=== PATIENT | male | born 1950 | race American Indian/Alaskan Native ===

== ENCOUNTER 2016-11-16 19:05 | Emergency (ER) | payer MEDICARE ==
[2016-11-16 20:48] LABS: Basophils % (Auto) 1.1 % (0.0-1.8); Eosinophils % (Auto) 5.2 % (0.0-4.3); Hematocrit 40.7 % (35.5-45.6); Hemoglobin 13.7 gm/dl (11.8-15.2); Mean Corpuscular HGB Conc 34 % (32-34); Mean Corpuscular Hemoglobin 30 pg (28-32); Mean Corpuscular Volume 90 fl (84-94); Platelet Count 298 K/mm3 (140-440); Red Blood Count 4.51 M/mm3 (3.65-5.03); Red Cell Distribution Width 15.4 % (13.2-15.2); White Blood Count 7.5 K/mm3 (4.5-11.0)
[2016-11-16 21:04] LABS: Anion Gap 19 mmol/L; BUN/Creatinine Ratio 14.44; Blood Urea Nitrogen 13 mg/dL (9-20); Calcium 9.7 mg/dL (8.4-10.2); Carbon Dioxide 28 mmol/L (22-30); Chloride 93.8 mmol/L (98-107); Glucose 159 mg/dL (75-100); Potassium 3.7 mmol/L (3.6-5.0); Sodium 137 mmol/L (137-145)
--- NOTE | 2016-11-16 23:58 | Emergency Department Report ---
ED General Adult HPI - General Chief complaint: Chest Pain Stated complaint: HEART BURN Time Seen by Provider: 11/16/16 23:50 Source: patient Mode of arrival: Ambulatory Limitations: No Limitations - History of Present Illness Initial comments: 66-year-old male with a past medical history of hypertension comes in for complaint of heartburn. Patient reports that the cast feels like is moving all over his back and shoulders. He reports that this started today. He does complain of cough with mucus that is a long like a strain. He admits to vomiting about 7 PM today admits to nausea denies any fever chills or diarrhea. He reported the heartburn feels like it's burning. He does elicit that his last follow-up with his PCP was 2 weeks ago. He is scheduled for colonoscopy on 12/02/2016. - Related Data Previous Rx's Medication Instructions Recorded Last Taken Type Ibuprofen [Motrin 800 MG tab] 800 mg PO Q8H #30 tablet 02/23/15 Unknown Rx traMADol [Ultram 50 MG tab] 50 mg PO Q6HR PRN #25 tablet 02/23/15 Unknown Rx Lisinopril/Hydrochlorothiazide 2 each PO QDAY #60 tablet 07/22/15 Unknown Rx [Zestoretic 20-12.5 mg] Ranitidine HCl [Zantac 150 MG TAB] 150 mg PO BID #60 tablet 11/17/16 Unknown Rx Allergies Allergy/AdvReac Type Severity Reaction Status Date / Time No Known Allergies Allergy Verified 07/22/15 05:03 ED Review of Systems ROS: Stated complaint: HEART BURN Other details as noted in HPI Constitutional: denies: chills, fever Respiratory: cough. denies: shortness of breath, SOB with exertion, SOB at rest Cardiovascular: denies: chest pain Gastrointestinal: nausea, vomiting, constipation. denies: abdominal pain, diarrhea ED Past Medical Hx - Past Medical History Hx Hypertension: Yes - Surgical History Past Surgical History?: Yes Additional Surgical History: tonsilectomy X10 years - Social History Smoking Status: Current Every Day Smoker Substance Use Type: Alcohol - Medications Home Medications: Home Medications Medication Instructions Recorded Confirmed Last Taken Type Ibuprofen [Motrin 800 MG tab] 800 mg PO Q8H #30 tablet 15 07/22/15 Unknown Rx traMADol [Ultram 50 MG tab] 50 mg PO Q6HR PRN #25 tablet 02/23/15 07/22/15 Unknown Rx Lisinopril/Hydrochlorothiazide 2 each PO QDAY #60 tablet 07/22/15 Unknown Rx [Zestoretic 20-12.5 mg] Ranitidine HCl [Zantac 150 MG TAB] 150 mg PO BID #60 tablet 11/17/16 Unknown Rx ED Physical Exam - General Limitations: No Limitations General appearance: alert, in no apparent distress - Head Head exam: Present: atraumatic, normocephalic - Eye Eye exam: Present: normal appearance, PERRL, EOMI - ENT ENT exam: Present: normal exam, mucous membranes moist - Neck Neck exam: Present: normal inspection - Respiratory Respiratory exam: Present: normal lung sounds bilaterally. Absent: respiratory distress, wheezes, rales, rhonchi, chest wall tenderness - Cardiovascular Cardiovascular Exam: Present: tachycardia, normal heart sounds - GI/Abdominal GI/Abdominal exam: Present: soft. Absent: distended, tenderness ED Course Vital Signs 11/16/16 19:58 Temperature 98.8 F Pulse Rate 111 H Blood Pressure 155/86 O2 Sat by Pulse 98 Oximetry ED Medical Decision Making - Lab Data Result diagrams: 11/16/16 20:14 11/16/16 20:14 - Radiology Data Radiology results: image reviewed FINAL REPORT PROCEDURE: XR CHEST ROUTINE 2V PA AND LATERAL TECHNIQUE: A total of 3 films obtained which are 1 PA view and 2 lateral views of the chest HISTORY: chest pain COMPARISON: No prior studies are available for comparison. FINDINGS: Some small focal densities projecting in the central mediastinum on the lateral views are too small to characterize and therefore remain nonspecific but are relatively dense for their size and therefore could be small calcified lymph nodes or calcified granulomas. These are difficult to identify on the frontal view. The mediastinal contour and heart size are normal. The lungs are clear with no edema or infiltrate or effusion. There is no plain film evidence of pneumothorax. IMPRESSION: Overall negative PA and lateral chest with no plain film evidence of acute finding. - Medical Decision Making Patient seen by this provider in fast track. Chest pain protocol was ordered in triage. Troponin is within normal limits awaiting chest x-ray reading, EKG showed sinus tachycardic, septal infarct, age undetermined. Chest x-ray came back negative for any infiltrates. Dr. Shore evaluated by patient as well. He both agreed that we could discharge patient on a H2 lorena and have him follow- up closely with his primary care provider. Patient verbalized understanding. Critical care attestation.: If time is entered above; I have spent that time in minutes in the direct care of this critically ill patient, excluding procedure time. ED Disposition Clinical Impression: Heart burn Disposition: DISCHARGED TO HOME OR SELFCARE Is pt being admited?: No Does the pt Need Aspirin: No Condition: Stable Instructions: Gastroesophageal Reflux Disease (ED) Additional Instructions: Is very importantly to follow with her primary care provider. To discuss preventative care for your heart. As well as evaluation for your heartburn. Prescriptions: Ranitidine HCl [Zantac 150 MG TAB] 150 mg PO BID #60 tablet Referrals: ORLANDO HICKEY MD [Primary Care Provider] - 3-5 Days Forms: Work/School Release Form(ED)
--- NOTE | 2016-11-17 01:00 | XRay Report ---
FINAL REPORT PROCEDURE: XR CHEST ROUTINE 2V PA AND LATERAL TECHNIQUE: A total of 3 films obtained which are 1 PA view and 2 lateral views of the chest HISTORY: chest pain COMPARISON: No prior studies are available for comparison. FINDINGS: Some small focal densities projecting in the central mediastinum on the lateral views are too small to characterize and therefore remain nonspecific but are relatively dense for their size and therefore could be small calcified lymph nodes or calcified granulomas. These are difficult to identify on the frontal view. The mediastinal contour and heart size are normal. The lungs are clear with no edema or infiltrate or effusion. There is no plain film evidence of pneumothorax. IMPRESSION: Overall negative PA and lateral chest with no plain film evidence of acute finding.
[2016-11-17 01:55] VITALS: BP 145/82
== END 2016-11-17 01:54 | disposition home or self-care (01) ==
LOC: ED 19:05
DX: R12 Heartburn (principal); I10 Essential (primary) hypertension; F17.200 Nicotine dependence, unspecified, uncomplicated
CPT/HCPCS: 36415; 71020; 80048; 84484; 85025; 93005; 93010

== ENCOUNTER 2017-04-13 00:32 | Emergency (ER) | payer MEDICARE ==
[2017-04-13 00:46] VITALS: BP 157/85
[2017-04-13] MEDS ORDERED: TYLENOL PO ONE (00:47)
[2017-04-13 01:21] LABS: Basophils % (Auto) 1.1 % (0.0-1.8); Eosinophils % (Auto) 4.9 % (0.0-4.3); Hematocrit 41.1 % (35.5-45.6); Hemoglobin 13.5 gm/dl (11.8-15.2); Mean Corpuscular HGB Conc 33 % (32-34); Mean Corpuscular Hemoglobin 29 pg (28-32); Mean Corpuscular Volume 89 fl (84-94); Platelet Count 301 K/mm3 (140-440); Red Blood Count 4.61 M/mm3 (3.65-5.03); Red Cell Distribution Width 16.1 % (13.2-15.2); White Blood Count 8.3 K/mm3 (4.5-11.0)
[2017-04-13 01:32] LABS: Anion Gap 16 mmol/L; BUN/Creatinine Ratio 22.85; Blood Urea Nitrogen 16 mg/dL (9-20); Calcium 9.6 mg/dL (8.4-10.2); Carbon Dioxide 27 mmol/L (22-30); Glucose 118 mg/dL (75-100); Potassium 4.2 mmol/L (3.6-5.0); Sodium 139 mmol/L (137-145)
== END 2017-04-13 04:30 | disposition left against medical advice (07) ==
LOC: ED 00:32
DX: I10 Essential (primary) hypertension (principal); R51 Headache; F17.200 Nicotine dependence, unspecified, uncomplicated; Z53.21 Procedure and treatment not carried out due to patient leaving prior to being seen by health care provider
CPT/HCPCS: 36415; 80048; 85025

== ENCOUNTER 2017-05-13 02:29 | Emergency (ER) | payer MEDICARE ==
[2017-05-13 02:50] VITALS: BP 149/82
--- NOTE | 2017-05-13 03:16 | Emergency Department Report ---
- General Chief Complaint: Upper Respiratory Infection Stated Complaint: scratchy throat, runny nose Source: patient Mode of arrival: Ambulatory Limitations: No Limitations - History of Present Illness Initial Comments: Patient states that for the past day or 2 just scratchy throat and runny nose HE watery eyes. Patient complains of nonproductive cough, denies shortness of breath, denies chest pain. Patient states he was just his primary care doctor' s Sunday and got a clean bill of health and doesn't need to be seen again for 6 months, patient said he started getting sick with the symptoms approximately a day or 2 after that. Patient also denies nausea vomiting diarrhea, abdominal pain, dizziness, weakness, fatigue, or syncope. Patient states he just wants some antibiotics or allergy medicines so he can go fishing today. MD Complaint: cough, sore throat, nasal congestion -: Gradual, days(s) (2) Consistency: constant Improves With: nothing Worsens With: nothing Associated Symptoms: rhinorrhea, nasal congestion, sore throat, cough. denies: fever, chills, myalgias, diaphoresis, headache, stiff neck, chest pain, shortness of breath, abdominal pain, nausea, vomiting, diarrhea, dysuria, rash, confusion, right sweats, weight loss, epistaxis, hoarseness, ear pain - Related Data Home Medications Medication Instructions Recorded Confirmed Last Taken Aspirin [Adult Low Dose Aspirin EC] 81 mg PO 05/13/17 1 Day Ago Hydrochlorothiazide [HCTZ] 25 mg PO QDAY 05/13/17 05/13/17 1 Day Ago Lisinopril [Zestril] 40 mg PO 05/13/17 1 Day Ago amLODIPine [Norvasc] 10 mg PO DAILY 05/13/17 05/13/17 1 Day Ago Previous Rx's Medication Instructions Recorded Last Taken Type Azithromycin [Zithromax Z-JANEEN] 250 mg PO QDAY #6 tablet 05/13/17 Unknown Rx Cetirizine HCl [ZyrTEC] 10 mg PO DAILY #10 tab.rapdis 05/13/17 Unknown Rx Prednisone [predniSONE 5 mg (6-Day 5 mg PO .TAPER #1 tab.ds.pk 05/13/17 Unknown Rx Pack, 21 Tabs)] Allergies Allergy/AdvReac Type Severity Reaction Status Date / Time No Known Allergies Allergy Verified 10/08/15 05:03 ED Review of Systems ROS: Stated complaint: HEADACHE Other details as noted in HPI Constitutional: denies: chills, diaphoresis, fever, malaise Eyes: other (itchy watery eyes). denies: eye pain ENT: throat pain (scratchy), congestion (nasal congestion). denies: ear pain Respiratory: cough. denies: see HPI, orthopnea, shortness of breath, SOB with exertion, SOB at rest, stridor Cardiovascular: denies: chest pain Gastrointestinal: denies: abdominal pain, nausea, vomiting, diarrhea, constipation, hematemesis, melena, hematochezia Musculoskeletal: denies: back pain, arthralgia, myalgia Skin: denies: rash, lesions Neurological: denies: headache, weakness, numbness, paresthesias, confusion, abnormal gait, vertigo ED Past Medical Hx - Past Medical History Previous Medical History?: Yes Hx Hypertension: Yes - Surgical History Past Surgical History?: Yes Additional Surgical History: tonsilectomy X10 years - Social History Smoking Status: Current Every Day Smoker Substance Use Type: Alcohol - Medications Home Medications: Home Medications Medication Instructions Recorded Confirmed Last Taken Type Aspirin [Adult Low Dose Aspirin EC] 81 mg PO 05/13/17 1 Day Ago History Azithromycin [Zithromax Z-JANEEN] 250 mg PO QDAY #6 tablet 05/13/17 Unknown Rx Cetirizine HCl [ZyrTEC] 10 mg PO DAILY #10 tab.rapdis 05/13/17 Unknown Rx Hydrochlorothiazide [HCTZ] 25 mg PO QDAY 05/13/17 05/13/17 1 Day Ago History Lisinopril [Zestril] 40 mg PO 05/13/17 1 Day Ago History Prednisone [predniSONE 5 mg (6-Day 5 mg PO .TAPER #1 tab.ds.pk 05/13/17 Unknown Rx Pack, 21 Tabs)] amLODIPine [Norvasc] 10 mg PO DAILY 05/13/17 05/13/17 1 Day Ago History ED Physical Exam - General Limitations: No Limitations General appearance: alert, in no apparent distress - Head Head exam: Present: atraumatic, normocephalic - Eye Eye exam: Present: normal appearance, PERRL, EOMI. Absent: periorbital swelling , periorbital tenderness - ENT ENT exam: Present: normal exam, normal orophraynx, mucous membranes moist, TM's normal bilaterally (bilateral cerumen obscuration). Absent: normal external ear exam - Neck Neck exam: Present: normal inspection - Respiratory Respiratory exam: Present: normal lung sounds bilaterally. Absent: respiratory distress, wheezes, rales - Cardiovascular Cardiovascular Exam: Present: regular rate - GI/Abdominal GI/Abdominal exam: Present: soft. Absent: distended, tenderness, guarding, rebound, rigid - Back Exam Back exam: Present: normal inspection, full ROM. Absent: CVA tenderness (R), CVA tenderness (L) - Neurological Exam Neurological exam: Present: alert, oriented X3, CN II-XII intact, normal gait - Skin Skin exam: Present: warm, dry, intact, normal color. Absent: rash ED Course Vital Signs 05/13/17 02:42 Temperature 98.1 F Pulse Rate 89 Respiratory 18 Rate Blood Pressure 149/82 O2 Sat by Pulse 97 Oximetry ED Medical Decision Making - Medical Decision Making Agents afebrile with bilateral breath sounds clear to auscultation normal vital signs. Patient description of symptoms sounds like URI versus allergies. Critical care attestation.: If time is entered above; I have spent that time in minutes in the direct care of this critically ill patient, excluding procedure time. ED Disposition Clinical Impression: URI (upper respiratory infection) Disposition: DC-01 TO HOME OR SELFCARE Is pt being admited?: No Condition: Stable Instructions: Upper Respiratory Infection (ED) Prescriptions: Azithromycin [Zithromax Z-JANEEN] 250 mg PO QDAY #6 tablet Cetirizine HCl [ZyrTEC] 10 mg PO DAILY #10 tab.rapdis Prednisone [predniSONE 5 mg (6-Day Pack, 21 Tabs)] 5 mg PO .TAPER #1 tab.ds.pk Referrals: PRIMARY CARE,MD [Primary Care Provider] - 3-5 Days
[2017-05-13] MEDS ORDERED: DELTASONE PO ONE ×2 (03:22→03:27)
== END 2017-05-13 03:28 | disposition home or self-care (01) ==
LOC: ED 02:29
DX: J06.9 Acute upper respiratory infection, unspecified (principal); I10 Essential (primary) hypertension; F17.200 Nicotine dependence, unspecified, uncomplicated
CPT/HCPCS: 99282; J7512

== ENCOUNTER 2017-05-22 05:26 | Emergency (ER) | payer MEDICARE ==
[2017-05-22 06:27] LABS: Hematocrit 38.7 % (35.5-45.6); Hemoglobin 13.3 gm/dl (11.8-15.2); Mean Corpuscular HGB Conc 34 % (32-34); Mean Corpuscular Hemoglobin 30 pg (28-32); Mean Corpuscular Volume 88 fl (84-94); Platelet Count 275 K/mm3 (140-440); Red Blood Count 4.38 M/mm3 (3.65-5.03); Red Cell Distribution Width 15.9 % (13.2-15.2); White Blood Count 6.8 K/mm3 (4.5-11.0)
[2017-05-22 06:43] LABS: BUN/Creatinine Ratio 23.33; Blood Urea Nitrogen 14 mg/dL (9-20); Calcium 9.6 mg/dL (8.4-10.2); Carbon Dioxide 24 mmol/L (22-30); Glucose 105 mg/dL (75-100)
[2017-05-22 06:44] LABS: Anion Gap 18 mmol/L; Chloride 98.5 mmol/L (98-107); Potassium 3.8 mmol/L (3.6-5.0); Sodium 137 mmol/L (137-145)
[2017-05-22] MEDS ORDERED: DELTASONE PO ONE (08:15)
--- NOTE | 2017-05-22 08:23 | Emergency Department Report ---
HPI - General Chief Complaint: Back Pain/Injury Time Seen by Provider: 05/22/17 08:12 - HPI HPI: he is a 67-year-old male who presents to ED complaining of tingling sensation on his bilateral fingers 2 days and bilateral lower back pain 2 weeks. Patient states he was seen here about 2 weeks ago for an allergic reaction and was given some medications. Patient states after taking his medications when he started having the symptoms. Patient denies being diabetic. Patient denies fevers/chills/nausea/vomiting/chest pain/dizziness or headache. Etc. patient denies any injury, dysuria, frequency. ED Past Medical Hx - Past Medical History Previous Medical History?: Yes Hx Hypertension: Yes - Surgical History Past Surgical History?: Yes Additional Surgical History: tonsilectomy X10 years - Social History Smoking Status: Current Some Day Smoker Substance Use Type: None - Medications Home Medications: Home Medications Medication Instructions Recorded Confirmed Last Taken Type Aspirin [Adult Low Dose Aspirin EC] 81 mg PO 05/13/17 1 Day Ago History Azithromycin [Zithromax Z-JANEEN] 250 mg PO QDAY #6 tablet 05/13/17 Unknown Rx Cetirizine HCl [ZyrTEC] 10 mg PO DAILY #10 tab.rapdis 05/13/17 Unknown Rx Hydrochlorothiazide [HCTZ] 25 mg PO QDAY 05/13/17 05/13/17 1 Day Ago History Lisinopril [Zestril] 40 mg PO 05/13/17 1 Day Ago History Prednisone [predniSONE 5 mg (6-Day 5 mg PO .TAPER #1 tab.ds.pk 05/13/17 Unknown Rx Pack, 21 Tabs)] amLODIPine [Norvasc] 10 mg PO DAILY 05/13/17 05/13/17 1 Day Ago History Cyclobenzaprine [Flexeril] 10 mg PO QHS PRN #30 tablet 05/22/17 Unknown Rx Diclofenac Potassium 50 mg PO DAILY #30 tablet 05/22/17 Unknown Rx ED Review of Systems ROS: Stated complaint: ALLERGIC REACTION Other details as noted in HPI Constitutional: denies: chills, fever Eyes: denies: eye pain, eye discharge, vision change ENT: denies: ear pain, throat pain Respiratory: denies: cough, shortness of breath, wheezing Cardiovascular: denies: chest pain, palpitations Endocrine: no symptoms reported Gastrointestinal: denies: abdominal pain, nausea, diarrhea Genitourinary: denies: urgency, dysuria Musculoskeletal: back pain, myalgia. denies: joint swelling, arthralgia Skin: denies: rash, lesions Neurological: denies: headache, weakness, paresthesias Psychiatric: denies: anxiety, depression Hematological/Lymphatic: denies: easy bleeding, easy bruising Physical Exam - Physical Exam Vital Signs: Vital Signs 05/22/17 05:28 Temperature 98.5 F Pulse Rate 84 Respiratory 18 Rate Blood Pressure 148/78 O2 Sat by Pulse 98 Oximetry Physical Exam: GENERAL: Alert and oriented x3, no apparent distress, Normal Gait, atraumatic. HEAD: Head is normocephalic and a-traumatic. NECK: Supple. Non edematous, No lymphadenopathy or thyromegaly. No C-spine tenderness LUNGS: Symetrical with respiration, No wheezing, no rales or crackles, CTAB. HEART: S1, S2 present, regular rate and rhythm without murmur, no rubs, no gallops. Non tender to palpation ABDOMEN: No organomegaly was noted,Positive bowel sounds, soft, and non- distended. No pulsatile mass . Nontender to palpation on all Quadrants, NO CVA tenderness. EXTREMITIES/MUSCULOSKELETAL: No cyanosis, clubbing, rash, lesions or edema. Full ROM bilaterally. UE/LE Pulses 2+ bilaterally. LE 5+ strength bilaterally. NEUROLOGIC: The patient is cooperative with no focal neurologic deficits. Cranial nerves II through XII are grossly intact. Normal speech. Normal sensation in V1, V2, V3 bilaterally. Normal sensation in bilateral upper extremities, No loss of sensation, PSYCHIATRIC: Mood is congruent with affect, denies suicidal or homicidal ideations. SKIN: Warm and dry, No lesions, No ulceration or induration present. ED Course Vital Signs 05/22/17 05:28 Temperature 98.5 F Pulse Rate 84 Respiratory 18 Rate Blood Pressure 148/78 O2 Sat by Pulse 98 Oximetry ED Medical Decision Making - Lab Data Result diagrams: 05/22/17 06:10 05/22/17 06:10 - Radiology Data Radiology results: report reviewed, image reviewed - Medical Decision Making 67-year-old male presents with ED course urinalysis, CBC, CMP, CT scan of the lower lumbar spine ordered CT scan shows C reported above. CBC CMP within normal limits, urinalysis shows Discussed all findings the patient. Discussed patient to follow up with primary care physician. Discussed with patient his symptoms do worsen to return to the ED Vital signs are normal patient is in no acute distress patient is alert and oriented 3. Critical care attestation.: If time is entered above; I have spent that time in minutes in the direct care of this critically ill patient, excluding procedure time. ED Disposition Clinical Impression: Low back pain Qualifiers: Back pain laterality: bilateral Sciatica presence: without sciatica Disposition: TO HOME OR SELFCARE Is pt being admited?: No Does the pt Need Aspirin: No Condition: Stable Instructions: Lumbar Radiculopathy (ED), Arthralgia (ED) Additional Instructions: Follow instructions as discussed. Symptoms worsen return to ED. Prescriptions: Cyclobenzaprine [Flexeril] 10 mg PO QHS PRN #30 tablet PRN Reason: Muscle Spasm Diclofenac Potassium 50 mg PO DAILY #30 tablet Referrals: PRIMARY CARE, [Primary Care Provider] - 3-5 Days [facility] [Outside] - 3-5 Days [facility] [Outside] - 3-5 Days Forms: Accompanied Note, Work/School Release Form(ED) Time of Disposition: 10:11
--- NOTE | 2017-05-22 09:10 | Cat Scan Report ---
CT LUMBAR SPINE WITHOUT CONTRAST History: Low back pain. Technique: Helical CT and 1.25 mm intervals. Sagittal and coronal reformatted images. Comparison: None. Findings: There is normal height and alignment of the lumbar vertebral bodies. No evidence for fracture, bone lesion or malalignment. Moderate to severe degenerative disc disease with circumferential spurring is identified at L3-4, L4-5 and L5-S1. Vacuum phenomenon is present at all 3 levels. Moderate facet arthropathy and hypertrophy ligamentum flavum is also present at all 3 levels. Although intraspinal contents is limited on noncontrast CT. Mild central canal narrowing is suspected at all 3 levels. There is also mild to moderate bilateral neural foraminal narrowing at all 3 levels. L5-S1 neural foramina are most affected where stenosis is estimated at 50-75%. Impression: No acute process is appreciated. Advanced degenerative disc disease and facet arthropathy at the lowest 3 levels as outlined above. If radicular symptoms are present, CT lumbar myelogram or MRI lumbar spine without contrast is recommended.
[2017-05-22 09:32] LABS: Bilirubin,Urine NEG (Negative); Blood,Urine SM (Negative); Ketones,Urine NEG (Negative); Leukocyte Esterase,Urine NEG (Negative); Mucus,Urine FEW /HPF; Nitrite,Urine NEG (Negative); Protein,Urine <15 mg/dL mg/dL (Negative); Urobilinogen,Urine < 2.0 mg/dL (<2.0)
[2017-05-22 10:27] VITALS: BP 141/74
== END 2017-05-22 10:25 | disposition home or self-care (01) ==
LOC: ED 05:26
DX: M54.5 Low back pain (principal); I10 Essential (primary) hypertension; Z72.0 Tobacco use; Z79.82 Long term (current) use of aspirin
CPT/HCPCS: 36415; 72131; 80048; 81001; 85027; 99284; J7512

== ENCOUNTER 2018-05-27 03:52 | Emergency (ER) | payer MEDICARE | END 2018-05-27 04:00 | disposition left against medical advice (07) | LOC: ED 03:52 | DX: I10 Essential (primary) hypertension (principal); R42 Dizziness and giddiness; Z53.21 Procedure and treatment not carried out due to patient leaving prior to being seen by health care provider ==

== ENCOUNTER 2020-01-30 20:56 | Observation (INO) | payer MEDICARE ==
--- NOTE | 2020-01-30 21:29 | XRay Report ---
CHEST 2 VIEWS INDICATION / CLINICAL INFORMATION: Chest pain, dizziness and indigestion. COMPARISON: 11/16/16. FINDINGS: SUPPORT DEVICES: None. HEART / MEDIASTINUM: The heart size and pulmonary vasculature are normal. There is calcification in t he aortic arch without aneurysm. LUNGS / PLEURA: No significant pulmonary or pleural abnormality. No pneumothorax. ADDITIONAL FINDINGS: No significant additional findings. IMPRESSION: No acute abnormality or significant change. Signer Name: Kale Damon MD Signed: 01/30/2020 9:25 PM Workstation Name: [id number]
--- NOTE | 2020-01-30 21:43 | Emergency Department Report ---
ED Chest Pain HPI - General Chief Complaint: Chest Pain Stated Complaint: CHEST PAIN Time Seen by Provider: 01/30/20 21:07 Source: patient, EMS Mode of arrival: Stretcher Limitations: Physical Limitation - History of Present Illness Initial Comments: Patient is a 69-year-old male that presents emergency room with complaints of dizziness air indigestion. Patient states he had lower chest pain and epigastric pain that radiated to his back. Patient states the pain has resolved since receiving nitro and aspirin. Patient denies short of breath. Patient states prior to calling the ambulance his pain was a 10 out of 10. Patient states his pain was worse with exertion and movement. Patient states his pain is better with rest and the medications given by EMS. Patient had a recent carotid endarterectomy secondary to a high level blockage. Patient denies recent travel. Patient denies recent international travel. Patient denies exposure to the novel coronavirus. Patient denies sick contacts. Patient denies fever and chills. Patient denies cough. Patient denies diarrhea. Patient denies coming in contact with anybody with symptoms of the novel coronavirus. EMS report received. EMS states they gave the patient 3 nitros sublingual. Patient was also given 324 aspirin by mouth. EMS states that the patient's initial blood pressure was 240/100 and improved with the nitro. MD Complaint: chest pain -: Sudden Onset: during rest Pain Radiation: none Severity scale (0 -10): 0 Quality: sharp Consistency: now resolved Improves With: medication-other, rest Worsens With: exertion, movement re: denies: nausea, vomting, diaphoresis, dyspnea, sense of impending doom Other Symptoms: denies: cough, fever, syncope, rash, acid taste in mouth, leg swelling, palpitations, burping Treatments Prior to Arrival: aspirin, nitroglycerin Aspirin use within the Past 7 Days: (1) Yes - Related Data On Oral Contraceptives: No Home Medications Medication Instructions Recorded Confirmed Last Taken amLODIPine [Norvasc] 5 mg PO DAILY 05/13/17 01/30/20 1 Day Ago ~05/12/17 Aspirin 325 mg PO ONCE 01/30/20 01/30/20 Unknown Atorvastatin Calcium [Lipitor] 80 mg PO HS 01/30/20 01/30/20 Unknown Clopidogrel [Plavix] 75 mg PO QDAY 01/30/20 01/30/20 Unknown Iron,Carb/Vit C/Vit B12/Folic 65 mg PO TID 01/30/20 01/30/20 Unknown [Iron 100 Plus Tablet] Methocarbamol [Robaxin] 500 mg PO Q8HR PRN 01/30/20 01/30/20 Unknown Metoprolol [Lopressor TAB] 50 mg PO BID 01/30/20 01/30/20 Unknown Omeprazole 40 mg PO DAILY 01/30/20 01/30/20 Unknown amLODIPine [Norvasc] 5 mg PO DAILY 01/30/20 01/30/20 Unknown hydroCHLOROthiazide [Hctz] 12.5 mg PO QDAY 01/30/20 01/30/20 Unknown Allergies Allergy/AdvReac Type Severity Reaction Status Date / Time No Known Allergies Allergy Verified 07/22/15 05:03 Heart Score - HEART Score History: Moderately suspicious EKG: Non-specific Age: > 65 Risk factors: > 3 risk factors or hx of atherosclerotic disease Troponin: < normal limit HEART Score: 6 ED Review of Systems ROS: Stated complaint: CHEST PAIN Other details as noted in HPI Constitutional: denies: chills, fever Eyes: denies: eye pain, eye discharge, vision change ENT: denies: ear pain, throat pain Respiratory: denies: cough, shortness of breath, wheezing Cardiovascular: chest pain. denies: palpitations Endocrine: no symptoms reported Gastrointestinal: denies: abdominal pain, nausea, diarrhea Genitourinary: denies: urgency, dysuria Musculoskeletal: denies: back pain, joint swelling, arthralgia Skin: denies: rash, lesions Neurological: denies: headache, weakness, paresthesias Psychiatric: denies: anxiety, depression Hematological/Lymphatic: denies: easy bleeding, easy bruising ED Past Medical Hx - Past Medical History Previous Medical History?: Yes Hx Hypertension: Yes Additional medical history: acid reflux, L jugular blockage - Surgical History Past Surgical History?: Yes Additional Surgical History: tonsilectomy X10 years, stent at jugular vein(unknown how many stents) - Family History Family history: no significant - Social History Smoking Status: Current Every Day Smoker Substance Use Type: Alcohol - Medications Home Medications: Home Medications Medication Instructions Recorded Confirmed Last Taken Type amLODIPine [Norvasc] 5 mg PO DAILY 05/13/17 01/30/20 1 Day Ago History ~05/12/17 Aspirin 325 mg PO ONCE 01/30/20 01/30/20 Unknown History Atorvastatin Calcium [Lipitor] 80 mg PO HS 01/30/20 01/30/20 Unknown History Clopidogrel [Plavix] 75 mg PO QDAY 01/30/20 01/30/20 Unknown History Iron,Carb/Vit C/Vit B12/Folic 65 mg PO TID 01/30/20 01/30/20 Unknown History [Iron 100 Plus Tablet] Methocarbamol [Robaxin] 500 mg PO Q8HR PRN 01/30/20 01/30/20 Unknown History Metoprolol [Lopressor TAB] 50 mg PO BID 01/30/20 01/30/20 Unknown History Omeprazole 40 mg PO DAILY 01/30/20 01/30/20 Unknown History amLODIPine [Norvasc] 5 mg PO DAILY 01/30/20 01/30/20 Unknown History hydroCHLOROthiazide [Hctz] 12.5 mg PO QDAY 01/30/20 01/30/20 Unknown History ED Physical Exam - General Limitations: Physical Limitation General appearance: alert, in no apparent distress - Head Head exam: Present: atraumatic, normocephalic - Eye Eye exam: Present: normal appearance - ENT ENT exam: Present: mucous membranes moist - Neck Neck exam: Present: normal inspection - Respiratory Respiratory exam: Present: normal lung sounds bilaterally. Absent: respiratory distress, wheezes, rales, chest wall tenderness - Cardiovascular Cardiovascular Exam: Present: regular rate, normal rhythm. Absent: systolic murmur, diastolic murmur, rubs, gallop - GI/Abdominal GI/Abdominal exam: Present: soft, normal bowel sounds. Absent: distended, tenderness, guarding - Rectal Rectal exam: Present: deferred - Extremities Exam Extremities exam: Present: normal inspection - Back Exam Back exam: Present: normal inspection - Neurological Exam Neurological exam: Present: alert, oriented X3 - Psychiatric Psychiatric exam: Present: normal affect, normal mood - Skin Skin exam: Present: warm, dry, intact, normal color. Absent: rash ED Course Vital Signs 01/30/20 01/30/20 01/31/20 21:06 22:30 00:31 Temperature 98.6 F Pulse Rate 100 H 79 87 Respiratory 12 16 15 Rate Blood Pressure 109/58 109/58 Blood Pressure 122/75 [Right] O2 Sat by Pulse 97 99 Oximetry 01/31/20 01/31/20 01:01 01:10 Temperature Pulse Rate 94 H 93 H Respiratory 17 11 L Rate Blood Pressure 109/58 109/58 Blood Pressure [Right] O2 Sat by Pulse 98 99 Oximetry - Reevaluation(s) Reevaluation #1: I discussed all results with patient. I discussed plan of care with patient. Patient agrees with plan of care and admission. Patient to be admitted to the hospitalist service. The 01/30/20 23:56 - Consultations Consultation #1: Hospitalist consulted for admission. Hospitalist to admit patient. Bridge orders placed. 01/30/20 23:56 GAYATHRI score - Gayathri Score Age > 65: (1) Yes Aspirin use within the Past 7 Days: (1) Yes 3 or more CAD Risk Factors: (1) Yes 2 or more Angina events in past 24 hrs: (0) No Known CAD with more than 50% Stenosis: (0) No Elevated Cardiac Markers: (0) No ST Deviation Greater than 0.5mm: (0) No GAYATHRI Score: 3 ED Medical Decision Making - Lab Data Result diagrams: 01/30/20 21:21 01/30/20 21:21 - EKG Data -: EKG Interpreted by [facility] EKG shows normal: sinus rhythm, intervals, ST-T waves Rate: tachycardia - EKG Data Interpretation: LVH, other (Left axis deviation, wide QRS consistent with a left bundle branch block) - Radiology Data Radiology results: report reviewed, image reviewed CHEST 2 VIEWS INDICATION / CLINICAL INFORMATION: Chest pain, dizziness and indigestion. COMPARISON: 11/16/16. FINDINGS: SUPPORT DEVICES: None. HEART / MEDIASTINUM: The heart size and pulmonary vasculature are normal. There is calcification in the aortic arch without aneurysm. LUNGS / PLEURA: No significant pulmonary or pleural abnormality. No pneumothorax. ADDITIONAL FINDINGS: No significant additional findings. IMPRESSION: No acute abnormality or significant change. CTA CHEST WITH IV CONTRAST INDICATION / CLINICAL INFORMATION: MAIN: cp radiating to back 100cc Omni 350 . TECHNIQUE: Axial CT images were obtained through the chest after injection of 100 mL IV contrast. 3 plane MIP and/or 3D reconstructions were produced. All CT scans at this location are performed using CT dose reduction for [facility] by means of automated exposure control. COMPARISON: Chest radiograph from earlier today. FINDINGS: PULMONARY ARTERIES: No pulmonary emboli. THORACIC AORTA: Mild to moderate amount of calcified plaque is seen within the aortic arch but no evidence of aneurysm or dissection. HEART: No significant abnormality. CORONARY ARTERIES: Coronary artery calcification is present. PLEURA: No pleural effusion. No pneumothorax. LYMPH NODES: Multiple slightly prominent lymph nodes are present in the AP window. No hilar adenopathy noted.. LUNGS: No acute air space or interstitial disease. Both lungs are clear. ADDITIONAL FINDINGS: None. UPPER ABDOMEN: Small hiatal hernia is present. Calcified plaque is present in the proximal abdominal aorta. Gallstones are present within the gallbladder. SKELETAL STRUCTURES: Spondylitic changes present. IMPRESSION: 1. No CT evidence for pulmonary embolism. No evidence of aortic dissection. 2. Both lungs are clear. 3. Mild AP window mediastinal adenopathy of uncertain clinical significance. Chest CT scan in 6 months is suggested to evaluate stability. 4. Cholelithiasis without evidence of acute cholecystitis. 5. Small hiatal hernia. - Medical Decision Making Patient is a 69-year-old male that presents emergency room with complaints of chest pain rating to the back. Patient chest pain was actually in the lower aspect of her chest and in the epigastric region. Patient had a CT of the chest done in order to rule out a PE and dissection. Patient CTA was negative for acute lung findings. Patient's EKG was negative for a STEMI. Patient's labs were essentially unremarkable. Patient's cardiac work-up was negative x2 troponins. Patient admitted to the hospital service to rule out ACS. Patient brought in by EMS and EMS found the patient had chest pain and severely elevated blood pressure of 210/100. Patient was given 3 nitros and aspirin in route. Patient's blood pressure improved. - Differential Diagnosis ACS, chest pain, PE, dissection Critical Care Time: Yes Critical care time in (mins) excluding proc time.: 35 Critical care attestation.: If time is entered above; I have spent that time in minutes in the direct care of this critically ill patient, excluding procedure time. Critical Care Time: 35 minutes ED Disposition Clinical Impression: Hypertensive emergency Chest pain Qualifiers: Chest pain type: unspecified Qualified Code(s): R07.9 - Chest pain, unspecified Disposition: OP ADMIT IP TO THIS HOSP Is pt being admited?: Yes Does the pt Need Aspirin: No Condition: Critical Time of Disposition: 23:59
[2020-01-30 21:55] LABS: Hematocrit 32.3 % (35.5-45.6); Hemoglobin 10.7 gm/dl (11.8-15.2); Mean Corpuscular HGB Conc 33 % (32-34); Mean Corpuscular Volume 88 fl (84-94); Platelet Count 293 K/mm3 (140-440); Red Blood Count 3.65 M/mm3 (3.65-5.03)
[2020-01-30 22:08] LABS: Red Cell Distribution Width 20.8 % (13.2-15.2)
[2020-01-30 22:21] LABS: Alanine Aminotransferase 13 units/L (7-56); Albumin 3.9 g/dL (3.9-5); BUN/Creatinine Ratio 18; Blood Urea Nitrogen 14 mg/dL (9-20); Calcium 9.8 mg/dL (8.4-10.2); Hemolysis Index 4
[2020-01-30 22:41] LABS: Basophils % (Manual) 0 % (0.0-1.8); Total Cells Counted 100
[2020-01-30 22:42] LABS: Anisocytosis 2+; Macrocytosis 1+
[2020-01-30 22:44] LABS: Platelet Estimate Consistent w Auto; Schistocytes Rare
[2020-01-30 23:04] LABS: Amphetamine Screen,Urine PRESUMPTIVE NEGATIVE; Benzodiazepines Screen,Urine PRESUMPTIVE NEGATIVE; Cannabinoid Screen,Urine PRESUMPTIVE NEGATIVE; Cocaine Screen,Urine PRESUMPTIVE NEGATIVE; Methadone Screen,Urine PRESUMPTIVE NEGATIVE; Opiate Screen,Urine PRESUMPTIVE NEGATIVE
--- NOTE | 2020-01-30 23:25 | Cat Scan Report ---
CTA CHEST WITH IV CONTRAST INDICATION / CLINICAL INFORMATION: MAIN: cp radiating to back 100cc Omni 350 . TECHNIQUE: Axial CT images were obtained through the chest after injection of 100 mL IV contrast. 3 plane MIP an d/or 3D reconstructions were produced. All CT scans at this location are performed using CT dose redu ction for [facility] by means of automated exposure control. COMPARISON: Chest radiograph from earlier today. FINDINGS: PULMONARY ARTERIES: No pulmonary emboli. THORACIC AORTA: Mild to moderate amount of calcified plaque is seen within the aortic arch but no glendy dence of aneurysm or dissection. HEART: No significant abnormality. CORONARY ARTERIES: Coronary artery calcification is present. PLEURA: No pleural effusion. No pneumothorax. LYMPH NODES: Multiple slightly prominent lymph nodes are present in the AP window. No hilar adenopath y noted.. LUNGS: No acute air space or interstitial disease. Both lungs are clear. ADDITIONAL FINDINGS: None. UPPER ABDOMEN: Small hiatal hernia is present. Calcified plaque is present in the proximal abdominal aorta. Gallstones are present within the gallbladder. SKELETAL STRUCTURES: Spondylitic changes present. IMPRESSION: 1. No CT evidence for pulmonary embolism. No evidence of aortic dissection. 2. Both lungs are clear. 3. Mild AP window mediastinal adenopathy of uncertain clinical significance. Chest CT scan in 6 month s is suggested to evaluate stability. 4. Cholelithiasis without evidence of acute cholecystitis. 5. Small hiatal hernia. Signer Name: Leida Polk MD Signed: 01/30/2020 11:21 PM Workstation Name: [id number]
--- NOTE | 2020-01-31 03:44 | History and Physical Report ---
History of Present Illness Date of examination: 01/31/20 Date of admission: 01/31/20 00:35 Chief complaint: Chest pain off and on for a few hours History of present illness: 69-year-old male with history of carotid endarterectomy comes in for retrosternal chest pain and epigastric pain. Chest pain radiating to the back. Chest pain resolved with administration of nitro and aspirin. No shortness of breath. No diaphoresis no palpitations. No exacerbating or relieving factors. No exposure to coronavirus or recent travel. Initial blood pressure was very high at 240/100. Past Medical History Previous Medical History?: Yes Hypertension: Yes HLD GERD Carotid stenosis Surgical History Past Surgical History?: Yes Additional Surgical History: tonsilectomy X10 years, stent at jugular vein(unknown how many stents) Family History Family history: no significant Social History Smoking Status: Current Every Day Smoker Substance Use Type: Alcohol - Medications Home Medications: Home Medications Medication Instructions Recorded Confirmed Last Taken Type amLODIPine [Norvasc] 5 mg PO DAILY 05/13/17 01/30/20 1 Day Ago History ~05/12/17 Aspirin 325 mg PO ONCE 01/30/20 01/30/20 Unknown History Atorvastatin Calcium [Lipitor] 80 mg PO HS 01/30/20 01/30/20 Unknown History Clopidogrel [Plavix] 75 mg PO QDAY 01/30/20 01/30/20 Unknown History Iron,Carb/Vit C/Vit B12/Folic 65 mg PO TID 01/30/20 01/30/20 Unknown History [Iron 100 Plus Tablet] Methocarbamol [Robaxin] 500 mg PO Q8HR PRN 01/30/20 01/30/20 Unknown History Metoprolol [Lopressor TAB] 50 mg PO BID 01/30/20 01/30/20 Unknown History Omeprazole 40 mg PO DAILY 01/30/20 01/30/20 Unknown History amLODIPine [Norvasc] 5 mg PO DAILY 01/30/20 01/30/20 Unknown History hydroCHLOROthiazide [Hctz] 12.5 mg PO QDAY 01/30/20 01/30/20 Unknown History Review of Systems ROS: Stated complaint: CHEST PAIN Other details as noted in HPI Constitutional: denies: chills, fever Eyes: denies: eye pain, eye discharge, vision change ENT: denies: ear pain, throat pain Respiratory: denies: cough, shortness of breath, wheezing Cardiovascular: chest pain. denies: palpitations Endocrine: no symptoms reported Gastrointestinal: denies: abdominal pain, nausea, diarrhea Genitourinary: denies: urgency, dysuria Musculoskeletal: denies: back pain, joint swelling, arthralgia Skin: denies: rash, lesions Neurological: denies: headache, weakness, paresthesias Psychiatric: denies: anxiety, depression Hematological/Lymphatic: denies: easy bleeding, easy bruising Medications and Allergies Allergies Allergy/AdvReac Type Severity Reaction Status Date / Time No Known Allergies Allergy Verified 07/22/15 05:03 Home Medications Medication Instructions Recorded Confirmed Last Taken Type amLODIPine [Norvasc] 5 mg PO DAILY 05/13/17 01/30/20 1 Day Ago History ~05/12/17 Aspirin 325 mg PO ONCE 01/30/20 01/30/20 Unknown History Atorvastatin Calcium [Lipitor] 80 mg PO HS 01/30/20 01/30/20 Unknown History Clopidogrel [Plavix] 75 mg PO QDAY 01/30/20 01/30/20 Unknown History Iron,Carb/Vit C/Vit B12/Folic 65 mg PO TID 01/30/20 01/30/20 Unknown History [Iron 100 Plus Tablet] Methocarbamol [Robaxin] 500 mg PO Q8HR PRN 01/30/20 01/30/20 Unknown History Metoprolol [Lopressor TAB] 50 mg PO BID 01/30/20 01/30/20 Unknown History Omeprazole 40 mg PO DAILY 01/30/20 01/30/20 Unknown History amLODIPine [Norvasc] 5 mg PO DAILY 01/30/20 01/30/20 Unknown History hydroCHLOROthiazide [Hctz] 12.5 mg PO QDAY 01/30/20 01/30/20 Unknown History Exam - Constitutional Vitals: Temp Pulse Resp BP Pulse Ox 99.0 F 84 18 102/50 96 01/31/20 02:06 01/31/20 02:06 01/31/20 02:06 01/31/20 02:06 01/31/20 02:06 General appearance: Present: no acute distress, well-nourished - EENT Eyes: Present: PERRL ENT: hearing intact, clear oral mucosa - Neck Neck: Present: supple, normal ROM - Respiratory Respiratory effort: normal Respiratory: bilateral: CTA - Cardiovascular Heart rate: 78 Rhythm: regular Heart Sounds: Present: S1 & S2. Absent: rub, click - Extremities Extremities: no ischemia, pulses intact, pulses symmetrical, No edema Peripheral Pulses: within normal limits - Abdominal General gastrointestinal: Present: soft, non-tender, non-distended, normal bowel sounds Male genitourinary: Present: normal - Integumentary Integumentary: Present: clear, warm, dry - Musculoskeletal Musculoskeletal: gait normal, strength equal bilaterally - Psychiatric Psychiatric: appropriate mood/affect, intact judgment & insight - Neurologic Neurologic: CNII-XII intact, moves all extremities GAYATHRI score - Gayathri Score Age > 65: (1) Yes Aspirin use within the Past 7 Days: (1) Yes 3 or more CAD Risk Factors: (1) Yes 2 or more Angina events in past 24 hrs: (0) No Known CAD with more than 50% Stenosis: (0) No Elevated Cardiac Markers: (0) No ST Deviation Greater than 0.5mm: (0) No GAYATHRI Score: 3 Results - Labs CBC & Chem 7: 01/30/20 21:21 01/30/20 21:21 Labs: Laboratory Last Values WBC 7.0 K/mm3 (4.5-11.0) 01/30/20 21:21 RBC 3.65 M/mm3 (3.65-5.03) 01/30/20 21:21 Hgb 10.7 gm/dl (11.8-15.2) L 01/30/20 21:21 Hct 32.3 % (35.5-45.6) L 01/30/20 21:21 MCV 88 fl (84-94) 01/30/20 21:21 MCH 29 pg (28-32) 01/30/20 21:21 MCHC 33 % (32-34) 01/30/20 21:21 RDW 20.8 % (13.2-15.2) H 01/30/20 21:21 Plt Count 293 K/mm3 (140-440) 01/30/20 21:21 Add Manual Diff Complete 01/30/20 21:21 Total Counted 100 01/30/20 21:21 Seg Neuts % (Manual) 83.0 % (40.0-70.0) H 01/30/20 21:21 Band Neutrophils % 0 % 01/30/20 21:21 Lymphocytes % (Manual) 10.0 % (13.4-35.0) L 01/30/20 21:21 Reactive Lymphs % (Man) 0 % 01/30/20 21:21 Monocytes % (Manual) 5.0 % (0.0-7.3) 01/30/20 21:21 Eosinophils % (Manual) 2.0 % (0.0-4.3) 01/30/20 21:21 Basophils % (Manual) 0 % (0.0-1.8) 01/30/20 21:21 Metamyelocytes % 0 % 01/30/20 21:21 Myelocytes % 0 % 01/30/20 21:21 Promyelocytes % 0 % 01/30/20 21:21 Blast Cells % 0 % 01/30/20 21:21 Nucleated RBC % Not Reportable 01/30/20 21:21 Seg Neutrophils # Man 5.8 K/mm3 (1.8-7.7) 01/30/20 21:21 Band Neutrophils # 0.0 K/mm3 01/30/20 21:21 Lymphocytes # (Manual) 0.7 K/mm3 (1.2-5.4) L 01/30/20 21:21 Abs React Lymphs (Man) 0.0 K/mm3 01/30/20 21:21 Monocytes # (Manual) 0.4 K/mm3 (0.0-0.8) 01/30/20 21:21 Eosinophils # (Manual) 0.1 K/mm3 (0.0-0.4) 01/30/20 21:21 Basophils # (Manual) 0.0 K/mm3 (0.0-0.1) 01/30/20 21:21 Metamyelocytes # 0.0 K/mm3 01/30/20 21:21 Myelocytes # 0.0 K/mm3 01/30/20 21:21 Promyelocytes # 0.0 K/mm3 01/30/20 21:21 Blast Cells # 0.0 K/mm3 01/30/20 21:21 WBC Morphology Not Reportable 01/30/20 21:21 Hypersegmented Neuts Not Reportable 01/30/20 21:21 Hyposegmented Neuts Not Reportable 01/30/20 21:21 Hypogranular Neuts Not Reportable 01/30/20 21:21 Smudge Cells Not Reportable 01/30/20 21:21 Toxic Granulation Not Reportable 01/30/20 21:21 Toxic Vacuolation Not Reportable 01/30/20 21:21 Dohle Bodies Not Reportable 01/30/20 21:21 Pelger-Huet Anomaly Not Reportable 01/30/20 21:21 Igor Rods Not Reportable 01/30/20 21:21 Platelet Estimate Consistent w auto 01/30/20 21:21 Clumped Platelets Not Reportable 01/30/20 21:21 Plt Clumps, EDTA Not Reportable 01/30/20 21:21 Large Platelets Not Reportable 01/30/20 21:21 Giant Platelets Not Reportable 01/30/20 21:21 Platelet Satelliting Not Reportable 01/30/20 21:21 Plt Morphology Comment Not Reportable 01/30/20 21:21 RBC Morphology Not Reportable 01/30/20 21:21 Dimorphic RBCs Not Reportable 01/30/20 21:21 Polychromasia Few 01/30/20 21:21 Hypochromasia Not Reportable 01/30/20 21:21 Poikilocytosis Not Reportable 01/30/20 21:21 Anisocytosis 2+ 01/30/20 21:21 Microcytosis 1+ 01/30/20 21:21 Macrocytosis 1+ 01/30/20 21:21 Spherocytes Not Reportable 01/30/20 21:21 Pappenheimer Bodies Not Reportable 01/30/20 21:21 Sickle Cells Not Reportable 01/30/20 21:21 Target Cells Not Reportable 01/30/20 21:21 Tear Drop Cells Not Reportable 01/30/20 21:21 Ovalocytes Not Reportable 01/30/20 21:21 Helmet Cells Not Reportable 01/30/20 21:21 [place] Bodies Not Reportable 01/30/20 21:21 [place] Rings Not Reportable 01/30/20 21:21 [place] Cells Not Reportable 01/30/20 21:21 Bite Cells Not Reportable 01/30/20 21:21 Crenated Cell Not Reportable 01/30/20 21:21 Elliptocytes Few 01/30/20 21:21 Acanthocytes (Spur) Not Reportable 01/30/20 21:21 Rouleaux Not Reportable 01/30/20 21:21 Hemoglobin C Crystals Not Reportable 01/30/20 21:21 Schistocytes Rare 01/30/20 21:21 Malaria parasites Not Reportable 01/30/20 21:21 Marcio Bodies Not Reportable 01/30/20 21:21 Hem Pathologist Commnt No 01/30/20 21:21 Sodium 142 mmol/L (137-145) 01/30/20 21:21 Potassium 3.7 mmol/L (3.6-5.0) 01/30/20 21:21 Chloride 99.2 mmol/L (98-107) 01/30/20 21:21 Carbon Dioxide 31 mmol/L (22-30) H 01/30/20 21:21 Anion Gap 16 mmol/L 01/30/20 21:21 BUN 14 mg/dL (9-20) 01/30/20 21:21 Creatinine 0.8 mg/dL (0.8-1.5) 01/30/20 21:21 Estimated GFR > 60 ml/min 01/30/20 21:21 BUN/Creatinine Ratio 18 % 01/30/20 21:21 Glucose 138 mg/dL (75-100) H 01/30/20 21:21 Calcium 9.8 mg/dL (8.4-10.2) 01/30/20 21:21 Total Bilirubin 0.20 mg/dL (0.1-1.2) 01/30/20 21:21 AST 19 units/L (5-40) 01/30/20 21:21 ALT 13 units/L (7-56) 01/30/20 21:21 Alkaline Phosphatase 66 units/L (35-129) 01/30/20 21:21 Troponin T < 0.010 ng/mL (0.00-0.029) 01/30/20 21:21 Total Protein 6.9 g/dL (6.3-8.2) 01/30/20 21:21 Albumin 3.9 g/dL (3.9-5) 01/30/20 21:21 Albumin/Globulin Ratio 1.3 % 01/30/20 21:21 Urine Opiates Screen Presumptive negative 01/30/20 22:44 Urine Methadone Screen Presumptive negative 01/30/20 22:44 Ur Barbiturates Screen Presumptive negative 01/30/20 22:44 Ur Phencyclidine Scrn Presumptive negative 01/30/20 22:44 Ur Amphetamines Screen Presumptive negative 01/30/20 22:44 U Benzodiazepines Scrn Presumptive negative 01/30/20 22:44 Urine Cocaine Screen Presumptive negative 01/30/20 22:44 U Marijuana (THC) Screen Presumptive negative 01/30/20 22:44 Drugs of Abuse Note Disclamer 01/30/20 22:44 Short CBC 01/30/20 Range/Units 21:21 WBC 7.0 (4.5-11.0) K/mm3 Hgb 10.7 L (11.8-15.2) gm/dl Hct 32.3 L (35.5-45.6) % Plt Count 293 (140-440) K/mm3 [facility] 01/30/20 21:21 Sodium 142 Potassium 3.7 Chloride 99.2 Carbon Dioxide 31 H BUN 14 Creatinine 0.8 Glucose 138 H Calcium 9.8 Cardiac Enzymes 01/30/20 01/31/20 Range/Units 21:21 04:05 Troponin T < 0.010 < 0.010 (0.00-0.029) ng/mL Liver Function 01/30/20 Range/Units 21:21 Total Bilirubin 0.20 (0.1-1.2) mg/dL AST 19 (5-40) units/L ALT 13 (7-56) units/L Alkaline Phosphatase 66 (35-129) units/L Albumin 3.9 (3.9-5) g/dL Short CBC 01/30/20 Range/Units 21:21 WBC 7.0 (4.5-11.0) K/mm3 Hgb 10.7 L (11.8-15.2) gm/dl Hct 32.3 L (35.5-45.6) % Plt Count 293 (140-440) K/mm3 [facility] 01/30/20 21:21 Sodium 142 Potassium 3.7 Chloride 99.2 Carbon Dioxide 31 H BUN 14 Creatinine 0.8 Glucose 138 H Calcium 9.8 Cardiac Enzymes 01/30/20 01/31/20 Range/Units 21:21 04:05 Troponin T < 0.010 < 0.010 (0.00-0.029) ng/mL Liver Function 01/30/20 Range/Units 21:21 Total Bilirubin 0.20 (0.1-1.2) mg/dL AST 19 (5-40) units/L ALT 13 (7-56) units/L Alkaline Phosphatase 66 (35-129) units/L Albumin 3.9 (3.9-5) g/dL - Imaging and Cardiology EKG: report reviewed Chest x-ray: report reviewed (No acute findings) Imaging and Cardiology: CTA chest IMPRESSION: 1. No CT evidence for pulmonary embolism. No evidence of aortic dissection. 2. Both lungs are clear. 3. Mild AP window mediastinal adenopathy of uncertain clinical significance. Chest CT scan in 6 months is suggested to evaluate stability. 4. Cholelithiasis without evidence of acute cholecystitis. 5. Small hiatal hernia. Reza/IV: Voiding Method Toilet IV Catheter Type [Right INT / Saline Lock Antecubital] IV Catheter Type [Left INT / Saline Lock Antecubital] Assessment and Plan Advance Directives: Yes (Full code) VTE prophylaxis?: Chemical Plan of care discussed with patient/family: Yes - Patient Problems (1) Chest pain Current Visit: Yes Status: Acute Qualifiers: Chest pain type: unspecified Qualified Code(s): R07.9 - Chest pain, un specified Plan to address problem: Chest pain rule out CA protocol Serial troponins Stress test in the morning (2) Hypertensive emergency Current Visit: Yes Status: Acute Plan to address problem: Blood pressure medications adjusted IV hydralazine 10 mg every 3 as needed Cardene drip if necessary (3) H/O carotid endarterectomy Current Visit: Yes Status: Chronic Plan to address problem: Continue Plavix (4) Nicotine dependence Current Visit: Yes Status: Chronic Qualifiers: Nicotine product type: cigarettes Plan to address problem: Patient counseled about stopping smoking (5) Hyperlipidemia Current Visit: Yes Status: Chronic Qualifiers: Hyperlipidemia type: mixed hyperlipidemia Qualified Code(s): E78.2 - Mixed hyperlipidemia Plan to address problem: Continue statins (6) DVT prophylaxis Current Visit: Yes Status: Acute Plan to address problem: On heparin and GI prophylaxis
[2020-01-31] MEDS ORDERED: oxyCODONE /ACETAMINOPHEN 5-325MG TAB PO PRN (03:45)
[2020-01-31] MEDS ORDERED: SODIUM CHLORIDE 0.9% 1000 ML 1,000 ML IV SCH (03:45)
[2020-01-31] MEDS ORDERED: ACETAMINOPHEN 325 MG TAB PO PRN (03:45)
[2020-01-31] MEDS ORDERED: ONDANSETRON 4 MG/2 ML INJ IV PRN (03:45)
[2020-01-31] MEDS ORDERED: HYDROmorphone 1 MG/1 ML INJ IV PRN (03:45)
[2020-01-31] MEDS ORDERED: ASPIRIN 325 MG TAB PO ONE (04:00)
[2020-01-31] MEDS: amLODIPine 5 MG TAB PO SCH ×2 (04:33→10:45)
[2020-01-31] MEDS: METOPROLOL TARTRATE 50 MG TAB PO SCH ×2 (04:33→10:42)
[2020-01-31] MEDS ORDERED: REGADENOSON 0.4 MG/5 ML INJ IV ONE ×2 (07:57→08:02)
[2020-01-31] MEDS ORDERED: VIT C PO SCH (08:00)
[2020-01-31] MEDS ORDERED: FOLIC PO SCH (08:00)
[2020-01-31] MEDS ORDERED: VIT B12 PO SCH (08:00)
[2020-01-31] MEDS ORDERED: IRON CARB PO SCH (08:00)
[2020-01-31] MEDS ORDERED: HEPARIN 5,000 UNIT/1 ML VIAL SUB-Q SCH (10:00)
[2020-01-31] MEDS ORDERED: PANTOPRAZOLE 40 MG TAB PO SCH (10:00)
[2020-01-31] MEDS ORDERED: CLOPIDOGREL 75 MG TAB PO SCH (10:00)
[2020-01-31] MEDS ORDERED: hydroCHLOROthiazide 12.5 MG CAP PO SCH (10:00)
[2020-01-31] MEDS ORDERED: NICOTINE 14 MG/24 HR PATCH TD SCH (10:00)
[2020-01-31 13:04] VITALS: BP 120/66
--- NOTE | 2020-01-31 13:08 | Discharge Summary ---
Providers - Providers Date of Admission: 01/31/20 00:35 Date of discharge: 01/31/20 Attending physician: YOVANI GUSMAN [facility] Reason for admission: Chest pain Condition: Critical Pertinent studies: Chest x-ray, chest CTA, MPI stress test Hospital course: 69-year-old male with history of carotid endarterectomy comes in for retrosternal chest pain and epigastric pain which resolved with administration of nitro and aspirin. In the ER Initial blood pressure was very high at 240/100. Initial cardiac enzyme and EKG was unremarkable, chest x-ray showed no infiltrates. His GAYATHRI score was 3. patient was admitted and underwent myocardial stress test which was normal. His blood pressure medications were resumed and blood pressure by next was stable, patient was then placed on Protonix twice daily and discharged home in stable condition with outpatient follow-up. Discharge diagnosis: Acute chest pain, likely due to GERD, stress test was negative Hypertensive emergency, medications adjusted, stable History of endarterectomy Nicotine dependence, counseled for cessation Hyperlipidemia, continue statin Physical exam: GENERAL: well-developed obese -[place] male lying on bed appeared to be in no discomfort. HEENT: Normocephalic. Atraumatic. No conjunctival congestion or icterus. Patient has moist mucous membranes. NECK: Supple. Trachea midline. CHEST/LUNGS: Clear to auscultated bilaterally, breathing nonlabored. No wheezes crackles or rhonchi. HEART/CARDIOVASCULAR: Regular in rate and rhythm. S1 and S2 positive. ABDOMEN: Abdomen is soft, nontender. Patient has normal bowel sounds. SKIN: There is no rash. Warm and dry. NEURO: No focal motor deficit. Follows command. MUSCULOSKELETAL: No joint effusion or tenderness. EXTRIMITY: No edema, no cyanosis or clubbing. PSYCH: Cooperative. Disposition: DC-01 TO HOME OR SELFCARE Exam - Constitutional Vitals: Temp Pulse Resp BP Pulse Ox 98.6 F 93 H 18 120/66 97 01/31/20 11:39 01/31/20 11:39 01/31/20 11:39 01/31/20 11:39 01/31/20 12:09 Plan Activity: advance as tolerated Weight Bearing Status: Weight Bear as Tolerated Diet: low fat, low salt Special Instructions: record daily BP diary Follow up with: RACHAEL SANDERS MD [Primary Care Provider] - 3-5 Days XOCHITL HAWKINS MD [Staff Physician] - 7 Days Prescriptions: Pantoprazole [Protonix TAB] 40 mg PO BID #60 tablet
--- NOTE | 2020-02-02 10:34 | Treadmill Report ---
THALLIUM STRESS TEST REPORT LEFT VENTRICLE: Left ventricular chamber size is within normal spread. Perfusion study demonstrates a moderate sized, fixed inferior defect of moderate intensity. There is no significant reversibility on the resting study. Gated analysis reports left ventricular systolic ejection fraction of 36%. CONCLUSION: Fixed inferior defect may represent diaphragmatic attenuation artifact. Cannot exclude a prior inferior wall myocardial infarction. There is no reversible ischemia demonstrated on this study. Clinical correlation is recommended and echocardiographic reassessment of left ventricular chamber size and systolic function. JOB# [id number] CA/NTS
== END 2020-01-31 14:48 | disposition home or self-care (01) ==
LOC: ED 20:56 → 4A 01-31 00:35
PROVIDERS: ADMIT Internal Medicine; ATTEND Internal Medicine
DX: I16.1 Hypertensive emergency (principal); R07.89 Other chest pain; K21.9 Gastro-esophageal reflux disease without esophagitis; E78.5 Hyperlipidemia, unspecified; F17.210 Nicotine dependence, cigarettes, uncomplicated; R42 Dizziness and giddiness; Z79.01 Long term (current) use of anticoagulants; Z79.899 Other long term (current) drug therapy; Z90.49 Acquired absence of other specified parts of digestive tract; Z79.82 Long term (current) use of aspirin
CPT/HCPCS: 36415; 71046; 71275; 78452; 80053; 80307; 83036; 84484; 85007; 85025; 93005; 93010; 93017; 96360; 96361; 96372; 99291; A9502; G0378; J1644; J2785; J7030; Q9967